=== PATIENT | female | born 1935 | race Caucasian/White ===

== ENCOUNTER 2016-10-21 08:02 | Emergency (ER) | payer MEDICARE ==
[2016-10-21 08:20] VITALS: TEMP 99.3; BMI 18.8
[2016-10-21 08:42] LABS: MPV 7.6 fL (7.4-10.4)
[2016-10-21 08:55] LABS: PARTIAL THROMB. TIME 26.2 SEC (22-35); PT-INR 1.1
[2016-10-21 08:57] LABS: BLOOD UREA NITROGEN 23 MG/DL (7-17); CALC CORRECTED 9.7 MG/DL (8.4-10.2); CALCIUM 8.7 MG/DL (8.4-10.2); CALCULATED OSMOLALITY 261 MOs/Kg (270-290); CHLORIDE 98 mEq/L (98-107); CPK TOTAL WITH POSSIBLE MB < 20 IU/L (30-134); GLUCOSE 137 MG/DL (70-99); SODIUM LEVEL 132 mEq/L (137-146); TOTAL PROTEIN 6.2 G/DL (6.3-8.2)
--- NOTE | 2016-10-21 09:00 | DIRPT ---
CLINICAL DATA: Weakness, fever, and abdominal pain for the past several days, currently no pain. Initial visit. EXAM: PORTABLE CHEST 1 VIEW COMPARISON: PA and lateral chest x-ray of September 17, 2016, and chest CT scan dated February 18, 2005. FINDINGS: The lungs are adequately inflated. There is no focal infiltrate. There is minimal scarring in the left lower lobe which is stable. There is no pleural effusion. There is a large hiatal hernia. The heart and pulmonary vascularity are normal. The mediastinum is normal in width. The bony thorax is unremarkable. IMPRESSION: 1. There is no active cardiopulmonary disease. 2. Large hiatal hernia. Electronically Signed By: Óscar Ramirez M.D. On: 10/21/2016 08:57
[2016-10-21 09:05] LABS: TOTAL CELL COUNT 100
[2016-10-21 09:06] LABS: SEG NEUTROPHIL 48 % (45-76)
[2016-10-21 09:42] LABS: LEUKOCYTES/URINE NEG (NEGATIVE); NITRITE/URINE NEG (NEGATIVE); RBC/URINE 0-2 (0-5); URINE OCCULT BLOOD NEG (NEG/TRACE); WBC/URINE 0-2 (0-5)
--- NOTE | 2016-10-21 11:14 | EDPRACDOC ---
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 Mode Of Arrival: Ambulance Home Medications: Home Medications Atenolol [Tenormin] 25 mg PO DAILY 09/17/16 Prednisone [Deltasone, Orasone] 5 mg PO DAILY 09/17/16 Simvastatin [Zocor] 20 mg PO QHS 09/17/16 Cephalexin Monohydrate [Keflex] 500 mg PO TID #20 capsule 09/20/16 Dronabinol [Marinol] 2.5 mg PO 1130,1630 #60 capsule 09/20/16 Ensure [Ensure Plus (Vanilla)] 240 ml PO 1000,1400,2000 #30 can 09/20/16 Ensure [Ensure Pudding (Chocolate)] 5 oz PO 1200,1700 #30 can 09/20/16 Magnesium Oxide [Mag-Ox] 400 mg PO TIDWM #90 tablet 09/20/16 POTASSIUM CHLORIDE Tablet [K-DUR 20 mEq Tablet*] 20 meq PO TIDWM #90 tab.er.prt 09/20/16 Pantoprazole Sodium [Protonix] 40 mg PO 0600 #30 tablet 09/20/16 Ondansetron HCl [Zofran] 4 mg PO TID PRN #7 tablet 10/21/16 Allergies/Adverse Reactions: Allergies Allergy/AdvReac Type Severity Reaction Status Date / Time No Known Allergies Allergy Verified 10/21/16 08:20 - History of Present Illness Onset: SEVERAL DAYS Exact Onset of Symptoms: Unknown HPI: ALLEGED FEVER AND DECREASED P.O. INTAKE FOR SEVERAL DAYS. NO PAIN NO COUGH NO SHORTNESS OF BREATH NO NAUSEA VOMITING OR DIARRHEA. Symptoms Started: Reports: Gradually Symptoms Description: Constant Weakness: Bilateral: Generalized Symptoms: Reports: Weak Symptom Severity: Reports: Does not affect activitiy (ABLE TO DRIVE??!!???) Associated signs and symptoms:: Reports: None, Fever (ALLEGED). Denies: Diarrhea, Nausea, Vomiting ED Past Medical History - History Reviewed Yes Nurses notes reviewed and agree except as marked - Patient Medical History Neurological History: Reports: Dementia (FAILURE TO THRIVE.) Cardiac History: Reports: Hypertension, Hypercholesterolemia Musculoskeletal History: Reports: Arthritis Psychological History: Denies: Depression, Substance Use Disorder - Family Medical History Reports: Hypertension, Cardiac Disorders (father) - Social Medical History Smoking Status: Never smoker Social History: Denies: Substance Use Disorder ETOH: None Substance Abuse: None Lives With: Spouse (WITH DEMENTED ) Lives In: Home EDM Review of Systems - Review of Systems ROS Negative Except as Marked: Yes All systems reviewed and were negative except as marked ROS Unobtainable: Yes Review of systems cannot be obtained due to the patient's medical condition (DEMENTIA) - Physical Exam Constitutional: No apparent distress, Alert (Awake), Cachectic Oriented to: Time, Person, Place Last recorded Vital Signs: Last Vital Signs Temp 99.3 F 10/21/16 08:05 Pulse 90 10/21/16 10:39 Resp 18 10/21/16 10:39 BP 102/55 L 10/21/16 10:39 Pulse Ox 95 10/21/16 10:39 Oxygen Pulse Oxygen Saturation 95 O2 Device Room Air Oxygen Flow Rate Fraction of Inspired Oxygen ( FIO2) - HEENT Head: Normal ( normocephalic) Eye Exam: Normal (PERRL, EOMI, Sclera white) Oropharynx: Normal (Pharynx:Moist without exudate,Gums-no swelling) Nose: No Symptoms Reported (septum midline) Neck: Normal (FROM, trachea at midline) - Respiratory/Cardiovascular Respiratory: Normal - CTA (BBS clear to auscultation without adventitious sounds ) Cardiovascular: Normal (RRR without murmur, gallop or rub) - GI Auscultation: Normal (NABS) Palpation: Normal (Soft,No rebound or guarding, non distended) Tenderness: Non tender. negative: Guarding, Rebound, Rigidity Reeder's Sign: Negative - Musculoskeletal Back: Normal (Non-Tender) Extremities: Normal (Normal tone, Pulses 2+ No cyanosis or edema, FROM) - Integumentary Skin: Normal, Warm, Dry Lymphatics: Normal (no adenopathy) - Neurologic Memory Impaired: Normal Motor Function: Normal (Normal tone, Pulses 2+ No cyanosis or edema, FROM) Cranial Nerve: Normal (CN II-X11 intact sensation, strength 5/5) Cerebellar: Normal Mood Description: Normal, Appropriate Thought: negative: Coherent (APPROPRIATE FOR DEMENTIA) Perception: Normal - Re-evaluation Re-evaluation 3 Re-evaluation Time: 11:26 (CASE MANAGEMENT REVIEWING TO FOR POSSIBLE PLACEMENT) - Results 10/21/16 08:30 10/21/16 08:30 WBC 14.7 xk/uL (3.8-10.8) H 10/21/16 08:30 RBC 3.55 xM/uL (4.20-5.40) L 10/21/16 08:30 Hgb 10.3 g/dL (12.0-16.0) L 10/21/16 08:30 Hct 31.2 % (36-47) L 10/21/16 08:30 MCV 88 fL (81-99) 10/21/16 08:30 MCH 29.2 pg (27-32) 10/21/16 08:30 MCHC 33.1 g/dl (33-36) 10/21/16 08:30 RDW 16.3 % (11.5-14.5) H 10/21/16 08:30 Plt Count 510 xk/uL (130-400) H 10/21/16 08:30 MPV 7.6 fL (7.4-10.4) 10/21/16 08:30 Neut % (Auto) Cancelled 10/21/16 08:30 Lymph % (Auto) Cancelled 10/21/16 08:30 [place] % (Auto) Cancelled 10/21/16 08:30 Eos % (Auto) Cancelled 10/21/16 08:30 Baso % (Auto) Cancelled 10/21/16 08:30 Absolute Neuts (auto) Cancelled 10/21/16 08:30 Absolute Lymphs (auto) Cancelled 10/21/16 08:30 Seg Neuts % (Manual) 48 % (45-76) 10/21/16 08:30 Band Neutrophils % 41 % (0-5) H 10/21/16 08:30 Lymphocytes % (Manual) 9 % (17-44) L 10/21/16 08:30 Monocytes % (Manual) 1 % (0-10) 10/21/16 08:30 Basophils % (Manual) 1 % (0-2) 10/21/16 08:30 Absolute Neutrophils 13.08 xk/uL (1.7-8.2) H 10/21/16 08:30 Absolute Lymphocytes 1.32 xk/uL (0.65-4.75) 10/21/16 08:30 Vacuolated Neuts 1+ 10/21/16 08:30 Platelet Estimate Inc (NORMAL) 10/21/16 08:30 RBC Morphology 1+ aniso 1+ hypo 1+ polychrom 1+ poik 10/21/16 08:30 RBC Morphology 1+ aniso 1+ hypo 1+ polychrom 1+ poik 10/21/16 08:30 RBC Morphology 1+ aniso 1+ hypo 1+ polychrom 1+ poik 10/21/16 08:30 RBC Morphology 1+ aniso 1+ hypo 1+ polychrom 1+ poik 10/21/16 08:30 PT 11.7 SEC (9.2-11.2) H 10/21/16 08:30 INR 1.1 10/21/16 08:30 APTT 26.2 SEC (22-35) 10/21/16 08:30 Sodium 132 mEq/L (137-146) L 10/21/16 08:30 Potassium 4.2 mEq/L (3.5-5.1) 10/21/16 08:30 Chloride 98 mEq/L (98-107) 10/21/16 08:30 Carbon Dioxide 24 mMOL/L (22-33) 10/21/16 08:30 Anion Gap 14 mEq/L (8-16) 10/21/16 08:30 BUN 23 MG/DL (7-17) H 10/21/16 08:30 Creatinine 0.80 MG/DL (0.52-1.04) 10/21/16 08:30 Estimated GFR (MDRD) > 60 mL/min (>=60) 10/21/16 08:30 Glucose 137 MG/DL (70-99) H 10/21/16 08:30 Calculated Osmolality 261 MOs/Kg (270-290) L 10/21/16 08:30 Lactic Acid 2.7 mEq/L (0.7-2.1) H 10/21/16 08:30 Calcium 8.7 MG/DL (8.4-10.2) 10/21/16 08:30 Corrected Calcium 9.7 MG/DL (8.4-10.2) 10/21/16 08:30 Total Bilirubin 0.8 MG/DL (0.2-1.3) 10/21/16 08:30 AST 23 IU/L (14-36) 10/21/16 08:30 ALT 27 IU/L (9-52) 10/21/16 08:30 Alkaline Phosphatase 87 IU/L (55-165) 10/21/16 08:30 Creatine Kinase < 20 IU/L (30-134) L 10/21/16 08:30 Troponin I < 0.01 ng/mL (<.04) 10/21/16 08:30 Total Protein 6.2 G/DL (6.3-8.2) L 10/21/16 08:30 Albumin 3.0 G/DL (3.5-5.0) L 10/21/16 08:30 Urine Color Dark yellow 10/21/16 09:22 Urine Clarity Clear 10/21/16 09:22 Urine pH 6.0 (5.0-8.0) 10/21/16 09:22 Ur Specific [place] 1.015 (1.003-1.035) 10/21/16 09:22 Urine Protein 1+ (NEG/TRACE) H 10/21/16 09:22 Urine Glucose (UA) Neg (NEGATIVE) 10/21/16 09:22 Urine Ketones Neg (NEGATIVE) 10/21/16 09:22 Urine Occult Blood Neg (NEG/TRACE) 10/21/16 09:22 Urine Nitrite Neg (NEGATIVE) 10/21/16 09:22 Urine Bilirubin Neg (NEGATIVE) 10/21/16 09:22 Urine Urobilinogen 4 MG/DL (0-1) H 10/21/16 09:22 Ur Leukocyte Esterase Neg (NEGATIVE) 10/21/16 09:22 Urine RBC 0-2 (0-5) 10/21/16 09:22 Urine WBC 0-2 (0-5) 10/21/16 09:22 Ur Epithelial Cells Occ 10/21/16 09:22 Urine Bacteria Few (NEG/FEW) 10/21/16 09:22 Urine Mucus Occ (NEG/OCC) 10/21/16 09:22 Lab Results 10/21/16 10/21/16 10/21/16 09:22 08:30 08:30 WBC 14.7 H RBC 3.55 L Hgb 10.3 L Hct 31.2 L MCV 88 MCH 29.2 MCHC 33.1 RDW 16.3 H Plt Count 510 H MPV 7.6 Neut % (Auto) Cancelled Lymph % (Auto) Cancelled [place] % (Auto) Cancelled Eos % (Auto) Cancelled Baso % (Auto) Cancelled Absolute Neuts (auto) Cancelled Absolute Lymphs (auto) Cancelled Seg Neuts % (Manual) 48 Band Neutrophils % 41 H Lymphocytes % (Manual) 9 L Monocytes % (Manual) 1 Basophils % (Manual) 1 Absolute Neutrophils 13.08 H Absolute Lymphocytes 1.32 Vacuolated Neuts 1+ Platelet Estimate Inc RBC Morphology 1+ poik PT 11.7 H INR 1.1 APTT 26.2 Sodium Potassium Chloride Carbon Dioxide Anion Gap BUN Creatinine Estimated GFR (MDRD) Glucose Calculated Osmolality Lactic Acid Calcium Corrected Calcium Total Bilirubin AST ALT Alkaline Phosphatase Creatine Kinase Troponin I Total Protein Albumin Urine Color Dark yellow Urine Clarity Clear Urine pH 6.0 Ur Specific [place] 1.015 Urine Protein 1+ H Urine Glucose (UA) Neg Urine Ketones Neg Urine Occult Blood Neg Urine Nitrite Neg Urine Bilirubin Neg Urine Urobilinogen 4 H Ur Leukocyte Esterase Neg Urine RBC 0-2 Urine WBC 0-2 Ur Epithelial Cells Occ Urine Bacteria Few Urine Mucus Occ 10/21/16 10/21/16 08:30 08:30 WBC RBC Hgb Hct MCV MCH MCHC RDW Plt Count MPV Neut % (Auto) Lymph % (Auto) [place] % (Auto) Eos % (Auto) Baso % (Auto) Absolute Neuts (auto) Absolute Lymphs (auto) Seg Neuts % (Manual) Band Neutrophils % Lymphocytes % (Manual) Monocytes % (Manual) Basophils % (Manual) Absolute Neutrophils Absolute Lymphocytes Vacuolated Neuts Platelet Estimate RBC Morphology PT INR APTT Sodium 132 L Potassium 4.2 Chloride 98 Carbon Dioxide 24 Anion Gap 14 BUN 23 H Creatinine 0.80 Estimated GFR (MDRD) > 60 Glucose 137 H Calculated Osmolality 261 L Lactic Acid 2.7 H Calcium 8.7 Corrected Calcium 9.7 Total Bilirubin 0.8 AST 23 ALT 27 Alkaline Phosphatase 87 Creatine Kinase < 20 L Troponin I < 0.01 Total Protein 6.2 L Albumin 3.0 L Urine Color Urine Clarity Urine pH Ur Specific [place] Urine Protein Urine Glucose (UA) Urine Ketones Urine Occult Blood Urine Nitrite Urine Bilirubin Urine Urobilinogen Ur Leukocyte Esterase Urine RBC Urine WBC Ur Epithelial Cells Urine Bacteria Urine Mucus - EKG EKG #1 EKG Time: 08:14 -: Yes EKG interpreted by me Rate: bpm: 99 [place]: Normal Rhythm: NSR Block: None Hypertrophy: None ST: Nonsp - Diagnostic Imaging Chest Image interpreted by: Radiologist Patient Name: JOSE FRANCISCO MAYBERRY LOC: ED : 1935 AGE: 81 Order Date:10/21/16 Date of Service: Report # [id number] Ord Physician: Joanne Medina MD Exam # [id number] Emergency Physician: Joanne Medina MD Exam(s): [id number] RAD/DG CHEST PORTABLE CLINICAL DATA: Weakness, fever, and abdominal pain for the past several days, currently no pain. Initial visit. EXAM: PORTABLE CHEST 1 VIEW COMPARISON: PA and lateral chest x-ray of September 17, 2016, and chest CT scan dated February 18, 2005. FINDINGS: The lungs are adequately inflated. There is no focal infiltrate. There is minimal scarring in the left lower lobe which is stable. There is no pleural effusion. There is a large hiatal hernia. The heart and pulmonary vascularity are normal. The mediastinum is normal in width. The bony thorax is unremarkable. IMPRESSION: 1. There is no active cardiopulmonary disease. 2. Large hiatal hernia. Electronically Signed By: Óscar Ramirez M.D. On: 10/21/2016 08:57 Electronically Signed By: Óscar Ramirez MD Electronically Signed Date/Time: 900 Dictate Date/Time: 10/21/16 0855 Technologist: Brigida Garrison Transcribed By: Cristin Transcribed Date/Time: 10/21/16 0857 - Additional Information NO INDICATION OF SEPSIS, NO INDICATION OF SOURCE OF INFECTION. APPEARS TO BE FAIRLY CLOSE TO BASELINE NO INDICATION FOR INPATIENT CARE. - Departure Disposition: Home Condition: Stable Final Diagnosis: Nausea, Attacks of weakness Instructions: Weakness (General) Education/Counseling Given To: Patient, Family Member Education/Counseling Given Regarding: Diagnosis, Treatment Referrals: Tomi Fuentes MD [Primary Care Provider] - One Week Prescriptions: New Ondansetron HCl [Zofran] 4 mg PO TID PRN #7 tablet PRN Reason: NAUSEA OR VOMITING No Action Atenolol [Tenormin] 25 mg PO DAILY Simvastatin [Zocor] 20 mg PO QHS Prednisone [Deltasone, Orasone] 5 mg PO DAILY Cephalexin Monohydrate [Keflex] 500 mg PO TID #20 capsule Dronabinol [Marinol] 2.5 mg PO 1130,1630 #60 capsule Ensure [Ensure Pudding (Chocolate)] 5 oz PO 1200,1700 #30 can Ensure [Ensure Plus (Vanilla)] 240 ml PO 1000,1400,2000 #30 can Magnesium Oxide [Mag-Ox] 400 mg PO TIDWM #90 tablet POTASSIUM CHLORIDE Tablet [K-DUR 20 mEq Tablet*] 20 meq PO TIDWM #90 tab.er.prt Pantoprazole Sodium [Protonix] 40 mg PO 0600 #30 tablet
[2016-10-21 12:40] VITALS: BP 113/90; PULSE 86
== END 2016-10-21 12:39 | disposition home or self-care (01) ==
LOC: ED 08:02
DX: R53.1 Weakness (principal); R11.0 Nausea
CPT/HCPCS: 36415; 71010; 80053; 81001; 82550; 83605; 84484; 85007; 85027; 85610; 85730; 87040; 87086; 93005; 99284

== ENCOUNTER 2016-10-22 12:13 | Emergency (ER) | payer MEDICARE ==
[2016-10-22 12:13] VITALS: BMI 18.8
[2016-10-22] MEDS ORDERED: NS 500 ML IV ONE (12:22)
[2016-10-22 12:30] VITALS: TEMP 97.7
[2016-10-22 12:51] LABS: MPV 7.9 fL (7.4-10.4)
[2016-10-22 13:03] LABS: CALC CORRECTED 10.7 MG/DL (8.4-10.2); CALCIUM 9.3 MG/DL (8.4-10.2); CREATININE 1.7 MG/DL (0.52-1.04); TOTAL PROTEIN 5.7 G/DL (6.3-8.2)
[2016-10-22 13:09] LABS: PARTIAL THROMB. TIME 25.4 SEC (22-35); PT-INR 1.1
[2016-10-22 13:21] LABS: SEG NEUTROPHIL 42 % (45-76); TOTAL CELL COUNT 100
--- NOTE | 2016-10-22 13:25 | EDPRACDOC ---
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 Home Medications: Home Medications Atenolol [Tenormin] 25 mg PO DAILY 09/17/16 Prednisone [Deltasone, Orasone] 5 mg PO DAILY 09/17/16 Simvastatin [Zocor] 20 mg PO QHS 09/17/16 Ensure [Ensure Plus (Vanilla)] 240 ml PO 1000,1400,2000 #30 can 09/20/16 Ondansetron HCl [Zofran] 4 mg PO TID PRN #7 tablet 10/21/16 Mirtazapine [Remeron] 30 mg PO HS 10/22/16 Allergies/Adverse Reactions: Allergies Allergy/AdvReac Type Severity Reaction Status Date / Time No Known Allergies Allergy Verified 10/22/16 12:25 - History of Present Illness Onset: yesterday HPI: SEVERAL WEEK HISTORY OF PROGRESSIVE WEAKNESS, GENERALIZED DECLINE, NOT EATING OR DRINKING, LAYING IN THE BED, MINIMAL AMBULATION, INCONTINENCE OF STOOL AND RETENTION SINCE YESTERDAY. FAMILY CANNOT CARE FOR PATIENT, THEY ARE INTERESTED IN HOSPICE HOUSE. NO FEVER OR CHILLS. NO VOMITING. NO DIARRHEA. I PERSONALLY ATTENDED TO THE PATIENT YESTERDAY FOR THE EXACT SAME COMPLAINTS. LAB WORK EVALUATION ESSENTIALLY NORMAL. ED Past Medical History - History Reviewed Yes Nurses notes reviewed and agree except as marked - Patient Medical History Neurological History: Reports: Dementia (FAILURE TO THRIVE.), Other Cardiac History: Reports: Hypertension, Hypercholesterolemia Musculoskeletal History: Reports: Arthritis Psychological History: Reports: Depression. Denies: Substance Use Disorder Additional Past Medical History: FAILURE TO THRIVE - Family Medical History Reports: Hypertension, Cardiac Disorders (father) - Social Medical History Smoking Status: Never smoker Social History: Denies: Substance Use Disorder ETOH: None Substance Abuse: None Lives With: Family, Significant Other (DEMENTED ) Lives In: Home EDM Review of Systems - Review of Systems ROS Negative Except as Marked: Yes All systems reviewed and were negative except as marked (ALL INFO FROM FAMILY / SIBLINGS) ROS Unobtainable: Yes Review of systems cannot be obtained due to the patient's medical condition - Physical Exam Constitutional: Cachectic, Somnolent, Other (DOES RESPOND) Oriented to: Not Oriented Last recorded Vital Signs: Last Vital Signs Temp 97.7 F 10/22/16 12:15 Pulse 95 01/31/17 12:15 Resp 16 10/22/16 12:15 BP 107/54 L 10/22/16 12:15 Pulse Ox 98 10/22/16 12:15 Oxygen Pulse Oxygen Saturation 98 O2 Device Room Air Oxygen Flow Rate Fraction of Inspired Oxygen ( FIO2) - HEENT Head: Normal Eye Exam: negative: Pale Conjunctiva, Scleral Icterus Oropharynx: Membranes Dry Neck: Normal - Respiratory/Cardiovascular Respiratory: Normal - CTA Cardiovascular: Normal. negative: Tachycardia - GI Auscultation: Normal Tenderness: Diffuse, Mild, Moderate. negative: Guarding, Rebound, Rigidity Reeder's Sign: Negative Rectal Exam: Heme negative stool Stool: Other (DARK FORMED STOOL) - Musculoskeletal Back: Normal - Integumentary Skin: Cool, Clammy - Neurologic Motor Function: Other (MOVES ALL EXT) Mood Description: Flat - Re-evaluation Re-evaluation 3 Re-evaluation Time: 15:51 (D/W DAUGHTER, WE AGREE PT COULD NOT TOLERATE SURGERY. THEY REQUEST HOSPICE HOUSE.) - Results 10/22/16 12:43 10/22/16 12:43 WBC 11.1 xk/uL (3.8-10.8) H 10/22/16 12:43 RBC 3.81 xM/uL (4.20-5.40) L 10/22/16 12:43 Hgb 11.1 g/dL (12.0-16.0) L 10/22/16 12:43 Hct 33.7 % (36-47) L 10/22/16 12:43 MCV 89 fL (81-99) 10/22/16 12:43 MCH 29.2 pg (27-32) 10/22/16 12:43 MCHC 32.9 g/dl (33-36) L 10/22/16 12:43 RDW 16.7 % (11.5-14.5) H 10/22/16 12:43 Plt Count 514 xk/uL (130-400) H 10/22/16 12:43 MPV 7.9 fL (7.4-10.4) 10/22/16 12:43 PT 11.4 SEC (9.2-11.2) H 10/22/16 12:43 INR 1.1 10/22/16 12:43 APTT 25.4 SEC (22-35) 10/22/16 12:43 Sodium 134 mEq/L (137-146) L 10/22/16 12:43 Potassium 5.1 mEq/L (3.5-5.1) 10/22/16 12:43 Chloride 97 mEq/L (98-107) L 10/22/16 12:43 Carbon Dioxide 21 mMOL/L (22-33) L 10/22/16 12:43 Anion Gap 21 mEq/L (8-16) H 10/22/16 12:43 BUN 40 MG/DL (7-17) H 10/22/16 12:43 Creatinine 1.70 MG/DL (0.52-1.04) H D 10/22/16 12:43 Estimated GFR (MDRD) 29 mL/min (>=60) L 10/22/16 12:43 Glucose 108 MG/DL (70-99) H 10/22/16 12:43 Calculated Osmolality 269 MOs/Kg (270-290) L 10/22/16 12:43 Lactic Acid 4.1 mEq/L (0.7-2.1) H* 10/22/16 12:43 Calcium 9.3 MG/DL (8.4-10.2) 10/22/16 12:43 Corrected Calcium 10.7 MG/DL (8.4-10.2) H 10/22/16 12:43 Total Bilirubin 0.8 MG/DL (0.2-1.3) 10/22/16 12:43 AST 22 IU/L (14-36) 10/22/16 12:43 ALT 29 IU/L (9-52) 10/22/16 12:43 Alkaline Phosphatase 84 IU/L (55-165) 10/22/16 12:43 Creatine Kinase 78 IU/L (30-134) 10/22/16 12:43 Troponin I 0.02 ng/mL (<.04) 10/22/16 12:43 Total Protein 5.7 G/DL (6.3-8.2) L 10/22/16 12:43 Albumin 2.6 G/DL (3.5-5.0) L 10/22/16 12:43 Lab Results 10/22/16 10/22/16 10/22/16 12:43 12:43 12:43 WBC 11.1 H RBC 3.81 L Hgb 11.1 L Hct 33.7 L MCV 89 MCH 29.2 MCHC 32.9 L RDW 16.7 H Plt Count 514 H MPV 7.9 PT 11.4 H INR 1.1 APTT 25.4 Sodium Potassium Chloride Carbon Dioxide Anion Gap BUN Creatinine Estimated GFR (MDRD) Glucose Calculated Osmolality Lactic Acid 4.1 H* Calcium Corrected Calcium Total Bilirubin AST ALT Alkaline Phosphatase Creatine Kinase Troponin I Total Protein Albumin 10/22/16 12:43 WBC RBC Hgb Hct MCV MCH MCHC RDW Plt Count MPV PT INR APTT Sodium 134 L Potassium 5.1 Chloride 97 L Carbon Dioxide 21 L Anion Gap 21 H BUN 40 H Creatinine 1.70 H D Estimated GFR (MDRD) 29 L Glucose 108 H Calculated Osmolality 269 L Lactic Acid Calcium 9.3 Corrected Calcium 10.7 H Total Bilirubin 0.8 AST 22 ALT 29 Alkaline Phosphatase 84 Creatine Kinase 78 Troponin I 0.02 Total Protein 5.7 L Albumin 2.6 L - EKG EKG #1 EKG Time: 12:59 -: Yes EKG interpreted by me Rate: bpm: 92 - Diagnostic Imaging Abdomen Image interpreted by: Radiologist Patient Name: JOSE FRANCISCO MAYBERRY LOC: ED : 1935 AGE: 81 Order Date:10/22/16 Date of Service: Report # [id number] Ord Physician: Joanne Medina MD Exam # [id number] Emergency Physician: Joanne Medina MD Exam(s): [id number] CT/CT ABD-PELV W/O IV CM CLINICAL DATA: Abdominal pain. Progressive weakness. Failure to thrive. EXAM: CT ABDOMEN AND PELVIS WITHOUT CONTRAST TECHNIQUE: Multidetector CT imaging of the abdomen and pelvis was performed following the standard protocol without IV contrast. COMPARISON: None. FINDINGS: Lower chest: There is a subpleural ground-glass opacity measuring 6 mm in the right middle lobe. Subtle ground-glass opacity in subpleural location measuring 7 mm is also seen in the lingula. There is peribronchovascular airspace consolidation in the right lower lobe, incompletely visualized. The heart is enlarged. There is a small pericardial effusion, more prominent dependently measuring up to 9 mm in thickness. Calcified atherosclerotic disease of the aorta is seen. There is a large dilated hiatal hernia. Hepatobiliary: No mass visualized on this un-enhanced exam. The gallbladder is not with the stated. Pancreas: The pancreas is atrophic. Spleen: The spleen is small. Adrenals/Urinary Tract: No evidence of urolithiasis or hydronephrosis. No definite mass visualized on this un-enhanced exam. Stomach/Bowel: The stomach is significantly distended. There is borderline pathologic gas and fluid distention of small bowel loops, measuring up to 3.3 cm. There is an area of a small bowel wall thickening in the right upper quadrant up (image 43/sequence 2) with small locules of gas adjacent to the bowel wall. There is a grossly abnormal appearance of the mid sigmoid colon with irregular wall thickening (image 61/sequence 2). Slightly more superiorly, there is a 3.3 cm masslike thickening of the sigmoid colon. There is a gas and fluid containing phlegmon collection adjacent to it, which measures approximately 4.8 cm. Scattered fossa of free gas un seen anteriorly in the abdomen. There is a spiculated mesenteric mass versus fluid collection in the left pelvis, adjacent to the area of irregular bowel wall thickening of the sigmoid colon, (image 65/sequence 2). Small amount of loculated gas is seen scattered dependently within this fluid collection/mass. This entire processes is inseparable from the left adnexa. Vascular/Lymphatic: No pathologically enlarged lymph nodes. No evidence of abdominal aortic aneurysm. Advanced atherosclerotic disease of the aorta and its main branches. Reproductive: The uterus is enlarged and globular. Other: Small amount of free fluid in the abdomen. Musculoskeletal: No suspicious bone lesions identified. Multilevel osteoarthritic changes of the thoracolumbar spine. Mild superior endplate compression deformity of T11 vertebral body is likely degenerative. IMPRESSION: Abnormal appearance of the sigmoid colon with asymmetric wall thickening, including masslike thickening of the midsigmoid colon, with adjacent gas and fluid containing phlegmon collection. This process is inseparable from the left adnexa. This may be represent a sigmoid perforation caused by diverticulitis with an associated abscess formation, however pathologic perforation due to sigmoid malignancy would have a similar appearance. Less likely this may represent a left adnexal mass, involving the sigmoid colon. Adjacent sigmoid mesenteric fluid collection versus spiculated mass or infarct, containing small amount of free gas. Scattered foci of free gas seen in the counter dependent portion of the abdomen. Small bowel obstruction versus ileus, likely caused by the sigmoid process. Additional findings of wall thickening of dilated small bowel in the right upper quadrant of the abdomen, which raises the possibility of infectious or ischemic enteritis. Dilation of the stomach and a large hiatal hernia. Enlarged globular uterus, incompletely evaluated due to lack of IV contrast. Sub cm subpleural ground-glass opacity in the right middle lobe and lingula. Advanced atherosclerotic disease of the aorta and its main branches. These results were called by telephone at the time of interpretation on 10/22/2016 at 2:56 pm to WANDA Leyva, who verbally acknowledged these results. Electronically Signed By: Tammy Pickett M.D. On: 10/22/2016 14:56 Electronically Signed By: Tammy Flynn MD Electronically Signed Date/Time: 459 Dictate Date/Time: 10/22/16 1405 Technologist: Students,Radiology Transcribed By: Cristin Transcribed Date/Time: 10/22/16 1456 - Departure Disposition: Hospice Care Inpatient Condition: Stable Final Diagnosis: Nausea, Acute renal failure (ARF), Lactic acidosis, Perforated diverticulum of large intestine Instructions: Renal Failure Diet (GEN), Weakness (General) Education/Counseling Given To: Patient, Family Member Education/Counseling Given Regarding: Diagnosis, Treatment, Prognosis Referrals: Tomi Fuentes MD [Primary Care Provider] - One Week Prescriptions: No Action Atenolol [Tenormin] 25 mg PO DAILY Simvastatin [Zocor] 20 mg PO QHS Prednisone [Deltasone, Orasone] 5 mg PO DAILY Ensure [Ensure Plus (Vanilla)] 240 ml PO 1000,1400,2000 #30 can Ondansetron HCl [Zofran] 4 mg PO TID PRN #7 tablet PRN Reason: NAUSEA OR VOMITING Mirtazapine [Remeron] 30 mg PO HS
[2016-10-22 13:44] LABS: LEUKOCYTES/URINE TRACE (NEGATIVE); NITRITE/URINE NEG (NEGATIVE); RBC/URINE 0-2 (0-5); URINE OCCULT BLOOD NEG (NEG/TRACE); WBC/URINE 0-2 (0-5)
[2016-10-22] MEDS ORDERED: MORPHINE 4 MG/ML INJECTION IV ONE (13:44)
--- NOTE | 2016-10-22 13:53 | DIRPT ---
CLINICAL DATA: Progressive generalized weakness, decreased oral intake, incontinent of stool, urinary retention EXAM: PORTABLE CHEST 1 VIEW COMPARISON: Portable chest x-ray of October 21, 2016 FINDINGS: The lungs are reasonably well inflated. The heart and pulmonary vascularity are normal. There is no pleural effusion or pneumothorax. There is gaseous distention of the large hiatal hernia. The stomach is distended with gas as well. This is more conspicuous than on yesterday's study. The bony thorax is unremarkable. IMPRESSION: 1. Increased gaseous distention of a large hiatal hernia as well as the visualized portions of the stomach. AP supine and upright abdominal series would be useful. 2. There is no evidence of pneumonia, CHF, nor other acute cardiopulmonary abnormality. Electronically Signed By: Óscar Ramirez M.D. On: 10/22/2016 13:50
--- NOTE | 2016-10-22 14:59 | DIRPT ---
CLINICAL DATA: Abdominal pain. Progressive weakness. Failure to thrive. EXAM: CT ABDOMEN AND PELVIS WITHOUT CONTRAST TECHNIQUE: Multidetector CT imaging of the abdomen and pelvis was performed following the standard protocol without IV contrast. COMPARISON: None. FINDINGS: Lower chest: There is a subpleural ground-glass opacity measuring 6 mm in the right middle lobe. Subtle ground-glass opacity in subpleural location measuring 7 mm is also seen in the lingula. There is peribronchovascular airspace consolidation in the right lower lobe, incompletely visualized. The heart is enlarged. There is a small pericardial effusion, more prominent dependently measuring up to 9 mm in thickness. Calcified atherosclerotic disease of the aorta is seen. There is a large dilated hiatal hernia. Hepatobiliary: No mass visualized on this un-enhanced exam. The gallbladder is not with the stated. Pancreas: The pancreas is atrophic. Spleen: The spleen is small. Adrenals/Urinary Tract: No evidence of urolithiasis or hydronephrosis. No definite mass visualized on this un-enhanced exam. Stomach/Bowel: The stomach is significantly distended. There is borderline pathologic gas and fluid distention of small bowel loops, measuring up to 3.3 cm. There is an area of a small bowel wall thickening in the right upper quadrant up (image 43/sequence 2) with small locules of gas adjacent to the bowel wall. There is a grossly abnormal appearance of the mid sigmoid colon with irregular wall thickening (image 61/sequence 2). Slightly more superiorly, there is a 3.3 cm masslike thickening of the sigmoid colon. There is a gas and fluid containing phlegmon collection adjacent to it, which measures approximately 4.8 cm. Scattered fossa of free gas un seen anteriorly in the abdomen. There is a spiculated mesenteric mass versus fluid collection in the left pelvis, adjacent to the area of irregular bowel wall thickening of the sigmoid colon, (image 65/sequence 2). Small amount of loculated gas is seen scattered dependently within this fluid collection/mass. This entire processes is inseparable from the left adnexa. Vascular/Lymphatic: No pathologically enlarged lymph nodes. No evidence of abdominal aortic aneurysm. Advanced atherosclerotic disease of the aorta and its main branches. Reproductive: The uterus is enlarged and globular. Other: Small amount of free fluid in the abdomen. Musculoskeletal: No suspicious bone lesions identified. Multilevel osteoarthritic changes of the thoracolumbar spine. Mild superior endplate compression deformity of T11 vertebral body is likely degenerative. IMPRESSION: Abnormal appearance of the sigmoid colon with asymmetric wall thickening, including masslike thickening of the midsigmoid colon, with adjacent gas and fluid containing phlegmon collection. This process is inseparable from the left adnexa. This may be represent a sigmoid perforation caused by diverticulitis with an associated abscess formation, however pathologic perforation due to sigmoid malignancy would have a similar appearance. Less likely this may represent a left adnexal mass, involving the sigmoid colon. Adjacent sigmoid mesenteric fluid collection versus spiculated mass or infarct, containing small amount of free gas. Scattered foci of free gas seen in the counter dependent portion of the abdomen. Small bowel obstruction versus ileus, likely caused by the sigmoid process. Additional findings of wall thickening of dilated small bowel in the right upper quadrant of the abdomen, which raises the possibility of infectious or ischemic enteritis. Dilation of the stomach and a large hiatal hernia. Enlarged globular uterus, incompletely evaluated due to lack of IV contrast. Sub cm subpleural ground-glass opacity in the right middle lobe and lingula. Advanced atherosclerotic disease of the aorta and its main branches. These results were called by telephone at the time of interpretation on 10/22/2016 at 2:56 pm to WANDA Leyva, who verbally acknowledged these results. Electronically Signed By: Tammy Pickett M.D. On: 10/22/2016 14:56
[2016-10-22 16:45] VITALS: BP 94/51
[2016-10-22 17:08] VITALS: PULSE 93
== END 2016-10-22 17:06 | disposition hospice, home (50) ==
LOC: ED 12:13
DX: N17.9 Acute kidney failure, unspecified (principal); K57.20 Diverticulitis of large intestine with perforation and abscess without bleeding; E87.2 Acidosis
CPT/HCPCS: 36415; 71010; 74176; 80053; 81001; 82270; 82550; 83605; 84484; 85007; 85027; 85610; 85730; 87040; 87086; 93005; 96361; 96374; 99284; J2270